=== PATIENT | female | born 1990 | race Caucasian/White ===

== ENCOUNTER 2019-09-03 15:29 | Inpatient (IN) | payer OTHER ==
[~2019-09-03] VITALS: Ht 151 cm; Wt 59.4 kg
[2019-09-03 16:05] VITALS: BP 107/63
[2019-09-03] MEDS ORDERED: RINGERS SOLUTION,LACTATED 1,000 ML IV PRN (17:10)
[2019-09-03] MEDS ORDERED: OXYTOCIN 30 UNITS/LACT RINGERS 500 ML IV ONE (17:10)
[2019-09-03] MEDS ORDERED: LIDOCAINE/PF 1% 30 ML VIAL INJ PRN (17:15)
[2019-09-03] MEDS ORDERED: FentaNYL CITRATE-PF 100 MCG/2 ML VIAL IVP PRN (17:15)
[2019-09-03] MEDS ORDERED: METHYLERGONOVINE MALEATE 0.2 MG/ML VIAL IM PRN (17:15)
[2019-09-03] MEDS ORDERED: CITRIC ACID/SODIUM CITRATE 30 ML SOLUTION UDCUP PO PRN (17:15)
[2019-09-03] MEDS ORDERED: METOCLOPRAMIDE HCL 5 MG/ML 2 ML VIAL IVP PRN (17:15)
[2019-09-03] MEDS ORDERED: MISOPROSTOL 50 MCG TABLET PO SCH (17:30)
[2019-09-03 18:05] LABS: BASOPHILS % (AUTO) 0.9 % (0.0-2.0); EOSINOPHILS % (AUTO) 1.7 % (1.0-6.0); HEMATOCRIT 35.1 % (36-46); HEMOGLOBIN 12.2 g/dL (12.0-16.0); LYMPHOCYTES # (AUTO) 1.8 K/uL (1.0-4.8); MEAN CORPUSCULAR HEMOGLOBIN 31.3 pg (26.0-34.0); MEAN CORPUSCULAR HGB CONC 34.6 G/dL (31.0-37.0); MEAN CORPUSCULAR VOLUME 90 fL (80-100); MONOCYTES # (AUTO) 0.7 K/uL (0.1-1.0); MONOCYTES % (AUTO) 8.1 % (2.0-9.0); NEUTROPHILS # (AUTO) 6.2 K/uL (1.8-7.7); NEUTROPHILS % (AUTO) 69.3 % (40.0-70.0); PLATELET COUNT (AUTO)-OB 169 K/uL (150-450); RED BLOOD CELL COUNT(AUTO) 3.89 MIL/uL (4.00-5.20)
[2019-09-03] MEDS ORDERED: OXYGEN THERAPY IH SCH (20:00)
[2019-09-03] MEDS: RINGERS SOLUTION,LACTATED 1,000 ML IV SCH (21:39)
[2019-09-04] MEDS ORDERED: MISOPROSTOL 50 MCG TABLET PO ONE ×2 (04:30)
[2019-09-04] MEDS: RINGERS SOLUTION,LACTATED 1,000 ML IV SCH ×4 (06:13→20:32)
[2019-09-04] MEDS ORDERED: MISOPROSTOL 50 MCG TABLET VG ONE (08:45)
[2019-09-04] MEDS ORDERED: OXYTOCIN 30 UNITS/LACT RINGERS 500 ML IV PRN (14:00)
[2019-09-04] MEDS ORDERED: AMPICILLIN SODIUM 2 GM/NS 100 ML IV ONE (16:00)
[2019-09-04] MEDS ORDERED: ROPIVACAINE HCL/PF 0.2% 100 ML ED ONE (17:21)
[2019-09-04] MEDS: AMPICILLIN SODIUM 1 GM/NS 50 ML IV SCH (20:32)
[2019-09-05] MEDS: AMPICILLIN SODIUM 1 GM/NS 50 ML IV SCH (00:10)
[2019-09-05] MEDS ORDERED: ONDANSETRON HCL 4 MG/2 ML VIAL IVP PRN (00:30)
[2019-09-05] MEDS ORDERED: ROPIVACAINE HCL/PF 0.2% 100 ML ED PRN (00:30)
[2019-09-05] MEDS ORDERED: DiphenhydrAMINE HCL 50 MG/ML VIAL IVP PRN (00:30)
[2019-09-05] MEDS ORDERED: CeFAZolin 2 GM/DEXTROSE 50 ML IV ONE (02:15)
[2019-09-05] MEDS ORDERED: LANOLIN 7 GM OINTMENT TP PRN (02:45)
[2019-09-05] MEDS ORDERED: BENZOCAINE 20%/MENTHOL 56 GM SPRAY CANISTER TP PRN (02:45)
[2019-09-05] MEDS ORDERED: GLYCERIN/WITCH HAZEL LEAF 40 PADS JAR TP PRN (02:45)
[2019-09-05] MEDS ORDERED: ACETAMINOPHEN/CODEINE 300-30 MG TABLET PO PRN ×2 (02:45)
[2019-09-05] MEDS: IBUPROFEN 800 MG TABLET PO SCH ×3 (03:06→23:15)
[2019-09-05] MEDS: MAGNESIUM HYDROXIDE SUSPENSION 30 ML UDCUP PO SCH (21:01)
[2019-09-06] MEDS: IBUPROFEN 800 MG TABLET PO SCH (05:17)
[2019-09-06] MEDS: MAGNESIUM HYDROXIDE SUSPENSION 30 ML UDCUP PO SCH (08:40)
[2019-09-06] MEDS ORDERED: ACET-2247 PO (09:21)
[2019-09-06] MEDS ORDERED: IBUP-2070 PO (09:23)
[2019-09-06] MEDS ORDERED: DOCU-275 PO (09:24)
== END 2019-09-06 12:40 | disposition home or self-care (01) | DRG 806 ==
LOC: OBSVTOIN 15:29 → 4S 15:29
PROVIDERS: ADMIT Obstetrics & Gynecology; ATTEND Obstetrics & Gynecology
PROC: 10E0XZZ Delivery of Products of Conception, External Approach (ICD-10-PCS; principal; 2019-09-05)
PROC: 10907ZC Drainage of Amniotic Fluid, Therapeutic from Products of Conception, Via Natural or Artificial Opening (ICD-10-PCS; 2019-09-05)
PROC: 0W8NXZZ Division of Female Perineum, External Approach (ICD-10-PCS; 2019-09-05)
PROC: 0UQGXZZ Repair Vagina, External Approach (ICD-10-PCS; 2019-09-05)
PROC: 3E0R3BZ Introduction of Anesthetic Agent into Spinal Canal, Percutaneous Approach (ICD-10-PCS; 2019-09-05)
PROC: 00HU33Z Insertion of Infusion Device into Spinal Canal, Percutaneous Approach (ICD-10-PCS; 2019-09-05)
DX: O69.81X0 Labor and delivery complicated by cord around neck, without compression, not applicable or unspecified (principal); O71.4 Obstetric high vaginal laceration alone; Z37.0 Single live birth; O77.0 Labor and delivery complicated by meconium in amniotic fluid; Z3A.39 39 weeks gestation of pregnancy
CPT/HCPCS: 86850; 86900; 86901; J0290; J0690; J2590; J2795; J3010; J7120